=== PATIENT | female | born 1985 | race Caucasian/White ===

== ENCOUNTER 2016-04-24 19:10 | Emergency (ER) | payer OTHER ==
[2016-04-24] MEDS ORDERED: ONDANSETRON 4 MG/2ML 2 ML VIAL ONE (22:03)
[2016-04-24] MEDS ORDERED: SODIUM CHLORIDE 0.9% 1,000 ML ONE ×2 (22:03→23:07)
[2016-04-24] MEDS ORDERED: MAALOX/LIDO2%VISC/SIMETHICONE 40 ML BOT ONE (23:24)
== END 2016-04-25 00:26 | disposition home or self-care (01) ==
LOC: ED 19:10
DX: O26.892 Other specified pregnancy related conditions, second trimester (principal); K21.9 Gastro-esophageal reflux disease without esophagitis; Z3A.16 16 weeks gestation of pregnancy
CPT/HCPCS: 99283 ×2; 96374; 96361; A9270; J2405; J7030 ×2